=== PATIENT | female | born 1985 | race Caucasian/White ===

== ENCOUNTER 2016-05-17 17:37 | Emergency (ER) | payer MEDICAID ==
[~2016-05-17] VITALS: Ht 154.9 cm; Wt 75.7 kg
[~2016-05-17 17:37] MED LIST: TYLENOL
[2016-05-17 18:23] VITALS: BP 139/95
--- NOTE | 2016-05-17 19:35 | NUR ---
PT RETURN FROM ULTRASOUND
--- NOTE | 2016-05-17 19:38 | NUR ---
Dr. Sparrow evaluating patient at bedside.
[2016-05-17] MEDS ORDERED: ACETAMINOPHEN 325 MG TAB PO ONE (19:55)
--- NOTE | 2016-05-17 19:59 | NUR ---
PATIENT PRESENTS TO ED WITH LIGHT VAGINAL BLEEDING X1DAY . PT STATES SHE IS CURRENTLY 9WEEKS AND FEELS A CONSTANT PRESSURE IN PELVIC AREA . DENIES N/V/D; SKIN IS PINK/WARM/DRY; AAOX4 WITH EVEN AND STEADY GAIT; LUNGS CLEAR BL; HR EVEN AND REGULAR; PT DENIES ANY FEVER, CP, SOB, OR COUGH AT THIS TIME; PATIENT STATES PAIN OF 7/10 AT THIS TIME; VSS; PATIENT POSITIONED FOR COMFORT; HOB ELEVATED; BEDRAILS UP X2; BED DOWN. ER MD MADE AWARE OF PT STATUS.
[2016-05-17 21:30] VITALS: BP 141/87
--- NOTE | 2016-05-17 21:30 | NUR ---
Patient discharged with v/s stable. Written and verbal after care instructions given and explained. Patient alert, oriented and verbalized understanding of instructions. Ambulatory with steady gait. All questions addressed prior to discharge. ID band removed. Patient advised to follow up with PMD. Rx of [employer] MULTI + DHA SOFTGEL AND ACETAMINOPHEN given. Patient educated on indication of medication including possible reaction and side effects. Opportunity to ask questions provided and answered.
== END 2016-05-17 21:30 | disposition home or self-care (01) ==
LOC: MED 17:37
DX: O20.0 Threatened abortion (principal); Z3A.10 10 weeks gestation of pregnancy